=== PATIENT | male | born 1940 | race Caucasian/White ===

== ENCOUNTER 2017-12-02 07:00 | Day surgery (SDC) | payer MEDICARE, OTHER ==
[~2017-12-02] VITALS: Ht 180.3 cm; Wt 72.9 kg
[2017-12-02] VITALS (14 sets, daily range): BP systolic 104–152; BP diastolic 62–98
[2017-12-02] MEDS ORDERED: phenylephrine 1% (X-tra strg) 15ml nasal spray NS ONE (07:30)
[2017-12-02] MEDS ORDERED: LIDOcaine 4% (40 mg/ml) topical solution 50ml TP ONE (07:30)
[2017-12-02] MEDS ORDERED: LIDOcaine Viscous 15ml cup MM ONE (07:30)
[2017-12-02] MEDS ORDERED: morphine 4 MG/ML inj SYRINge IM ONE (07:35)
[2017-12-02 07:47] LABS: BASOPHILS # (AUTO) 0.1 X10'3 (0-0.2); EOSINOPHILS # (AUTO) 0.1 X10'3 (0-0.9); EOSINOPHILS % (AUTO) 0.4 % (0-6); HEMATOCRIT 40.1 % (42.0-52.0); HEMOGLOBIN 13.4 g/dl (14.0-17.9); LYMPHOCYTES # (AUTO) 1.7 X10'3 (1.1-4.8); LYMPHOCYTES % (AUTO) 12.7 % (21-51); MEAN CORPUSCULAR HEMOGLOBIN 29.2 PG (27.0-31.0); MEAN CORPUSCULAR HGB CONC 33.4 % (33.0-36.5); MEAN CORPUSCULAR VOLUME 87.3 FL (78-98); MEAN PLATELET VOLUME 7.7 FL (7.4-10.4); MONOCYTES # (AUTO) 0.9 X10'3 (0-0.9); MONOCYTES % (AUTO) 6.3 % (2-12); NEUTROPHILS # (AUTO) 10.9 X10'3 (1.8-7.7); NEUTROPHILS % (AUTO) 79.6 % (42-75); PLATELET COUNT 375 X10'3 (140-440); RED BLOOD COUNT 4.59 X10'6 (4.70-6.10); RED CELL DISTRIBUTION WIDTH 15.1 % (11.5-14.5); WHITE BLOOD COUNT 13.6 X10'3 (4.5-11.0)
[2017-12-02] MEDS ORDERED: LIDOCAINE 4% (40MG/ML) topical solution 50ml **BRONCH ONLY ONE (07:52)
[2017-12-02] MEDS ORDERED: lidocaine 2% viscous 15 ML cup ***bronch room only MM ONE (07:52)
[2017-12-02] MEDS ORDERED: phenylephrine 1% Nasal spray (extra-strength) 15 ML bottle **bronch room NS ONE (07:52)
[2017-12-02] MEDS ORDERED: albuterol 2.5 MG/3 ML nebule NEB ONE (10:20)
[2017-12-24] MEDS ORDERED: LEVO500T89 PO (12:58)
== END 2017-12-02 11:55 | disposition home or self-care (01) ==
LOC: SSTAY O 07:00
PROVIDERS: ATTEND Internal Medicine Pulmonary Disease
DX: C34.31 Malignant neoplasm of lower lobe, right bronchus or lung (principal); I49.8 Other specified cardiac arrhythmias; I48.92 Unspecified atrial flutter; I10 Essential (primary) hypertension; I48.91 Unspecified atrial fibrillation; K21.9 Gastro-esophageal reflux disease without esophagitis; Z87.891 Personal history of nicotine dependence; Z72.89 Other problems related to lifestyle; Z79.899 Other long term (current) drug therapy; Z98.890 Other specified postprocedural states; Z80.1 Family history of malignant neoplasm of trachea, bronchus and lung
CPT/HCPCS: 31623; 31629; 36415; 76499; 82378; 85025; 87070; 88341; 88342; 94060; 94640; 94760; J2270; 31622; 31628; 76000; 88104; 88173; 88305

== ENCOUNTER 2017-12-23 08:29 | Day surgery (SDC) | payer MEDICARE, OTHER ==
[~2017-12-23] VITALS: Ht 180.3 cm; Wt 71.7 kg
[~2017-12-23 08:29] MED LIST: LIDOcaine 1%/PF 5ML 10 MG/ML VIAL SQ ONE
[2017-12-23 10:00] VITALS: BP 149/62
[2017-12-23 11:07] VITALS: BP 128/55
[2017-12-24] MEDS ORDERED: LEVO500T89 PO (12:58)
== END 2017-12-23 11:07 | disposition home or self-care (01) ==
LOC: SSTAY O 08:29
PROVIDERS: ATTEND Radiology Diagnostic Radiology
DX: J90 Pleural effusion, not elsewhere classified (principal); I10 Essential (primary) hypertension; I49.8 Other specified cardiac arrhythmias; K21.9 Gastro-esophageal reflux disease without esophagitis; I48.91 Unspecified atrial fibrillation; I48.92 Unspecified atrial flutter; Z85.038 Personal history of other malignant neoplasm of large intestine; Z87.891 Personal history of nicotine dependence; J44.9 Chronic obstructive pulmonary disease, unspecified; Z85.118 Personal history of other malignant neoplasm of bronchus and lung; Z79.2 Long term (current) use of antibiotics; Z98.890 Other specified postprocedural states; Z80.1 Family history of malignant neoplasm of trachea, bronchus and lung
CPT/HCPCS: 32555; 71045; J2001